=== PATIENT | female | born 1935 | race Caucasian/White ===

== ENCOUNTER 2022-03-10 10:31 | Outpatient (CLI) | payer MEDICARE ==
--- NOTE | 2022-03-10 13:36 | Ultrasound Report ---
PROCEDURE: Duplex Lwr Ext Arterial Bilat INDICATIONS: CAROTID STENOSIS, PVD TECHNIQUE: Color and pulse Doppler interrogation was performed of both lower extremity arterial systems, with im age documentation. COMPARISON: None. FINDINGS: Right lower extremity: Common femoral artery: 334 cm/sec, with biphasic flow. Deep femoral artery: 141 cm/sec, with biphasic flow. Proximal superficial femoral artery: 62 cm/sec, with triphasic-biphasic flow. Mid superficial femoral artery: 66 cm/sec, with triphasic-biphasic flow. Distal superficial femoral artery: Occluded with no detectable flow. Popliteal artery: 38 cm/sec, with biphasic flow. Posterior tibial artery: 33 cm/sec, with monophasic flow. Anterior tibial artery/dorsalis pedis: 30/16 cm/sec, with monophasic. flow. Persaud-scale imaging description: Approximately 50% stenosis of the right common femoral artery. Compl ete occlusion of the right SFA in the mid segment and distal segment with distal reconstitution via c ollaterals from the right popliteal artery. Left lower extremity: Left distal femoral artery greater than 75% narrowed. Complete occlusion of the left superficial femo ral artery stent in the mid segment with distal reconstitution of the popliteal artery. Monophasic fl ow in the popliteal artery, posterior tibial artery, and anterior tibial artery. 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 Complete occlusion of the right SFA at the mid segment with minimal distal reconstitution via poplite al collaterals. Moderate right FISHING CAPTAIN stenosis. Approximately 75% left deep femoral artery stenosis. Reviewed by: Pete Grayson MD on 03/10/2022 1:34 PM PDT Approved by: ePte Grayson MD on 03/10/2022 1:34 PM PDT Station ID: [id number]
--- NOTE | 2022-03-10 13:57 | Ultrasound Report ---
PROCEDURE: Ankle Brachial Index INDICATIONS: CAROTID STENOSIS, PVD TECHNIQUE: Ankle-brachial indices were obtained bilaterally and recorded. COMPARISONS: None. FINDINGS: Right ankle brachial index (DELORES): 0.6 Left ankle brachial index (DELORES): Zero point Healing potential: Ankle pressures >55 mm Hg in non-diabetics and >80 mm Hg in diabetics are likely to achieve primary h ealing of ischemic foot ulcers. Toe pressures >30 mm Hg are likely to achieve primary healing of ischemic foot ulcers, toe or transme tatarsal amputations. IMPRESSION: Normal ankle-brachial indices. Reviewed by: Pete Grayson MD on 03/10/2022 1:56 PM PDT Approved by: Pete Grayson MD on 03/10/2022 1:56 PM PDT Station ID: [id number]
--- NOTE | 2022-03-10 14:01 | Ultrasound Report ---
PROCEDURE: Carotid Doppler Complete INDICATIONS: CAROTID STENOSIS, PVD TECHNIQUE: Color and pulse Doppler interrogation was performed of both carotid systems, with image documentation and velocity measurements. COMPARISON: None. FINDINGS: Right carotid system: Right common carotid artery peak systolic velocity is 65 cm/s. Complete occlusion of the right ICA. M arkedly elevated external carotid artery peak systolic velocity of 255 cm/s. Midsegment right common carotid artery plaque and calcification produce approximately 50% stenosis. Left carotid system: Left common carotid artery peak systolic velocity 113 cm/s. Left ICA stent in place with markedly martínez vated left ICA peak systolic velocity of 411 cm/s. ICA/CCA ratio is 3.6. Moderate approximately 70% s tenosis of the left ICA stent seen on grayscale imaging. IMPRESSION: Complete right ICA occlusion. High-grade right ECA stenosis. Moderate stenosis of left ICA stent. Reviewed by: Pete Grayson MD on 03/10/2022 1:59 PM PDT Approved by: Pete Grayson MD on 03/10/2022 1:59 PM PDT Station ID: [id number]
== END 2022-03-10 10:32 | disposition home or self-care (01) ==
LOC: DI 10:31
PROVIDERS: ATTEND Thoracic Surgery (Cardiothoracic Vascular Surgery)
DX: I65.23 Occlusion and stenosis of bilateral carotid arteries (principal); I70.213 Atherosclerosis of native arteries of extremities with intermittent claudication, bilateral legs
CPT/HCPCS: 93880; 93922; 93925